=== PATIENT | male | born 1955 | race Caucasian/White ===

== ENCOUNTER → 2022-08-02 15:34 | Outpatient (BNVA) | payer OTHER, SELFPAY | PROVIDERS: PCP Internal Medicine; Visit Provider Psychiatry & Neurology Psychiatry | DX: Z13.89 Encounter for screening for other disorder (principal) ==

== ENCOUNTER 2023-07-03 11:10 | Outpatient (AMB) | payer MEDICARE, SELFPAY ==
--- NOTE | 2023-07-03 11:17 | MHC.OFFVISPS ---
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 did ok in winter goes outside frequently his brother in past would have winter blues used light box in past Past Psychiatric History: hx recurrent dysthymia Mental Status Exam Mental Status Exam Narrative: Mental Status Exam Narrative: Appearance: casually dressed smiling Behavior:appropriate psychomotor:wnl Speech: clear Thought proccess goal dir logical Thought content:future oriented content Mood:euthymic Affect:full SI:denies HI:denies VH/AH:none Delusions:none Insight/judgment:good Memory/cog: wnl Assessment and Plan Assessment & Plan (1) Dysthymic disorder: Status: Acute Code(s): F34.1 - Dysthymic disorder Plan in past was difficult 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 Self Management counseling: Maintenance-social rhythm and Sleep hygiene Diagnosis and Prognosis Counseling: Adequacy of current interventions Details: I spent [35] minutes reviewing the record, seeing the patient and documenting in the medical record. Counseling provided to the patient/caregiver as outlined below. Addressed patient/caregiver concerns regarding current medication regime including effective adherence. Addressed patient/caregiver concerns regarding diagnosis and prognosis including accuracy of diagnosis, prognosis over time, impact of diagnosis. Addressed patient/caregiver concerns regarding impact of recent stressors. 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
== END 2023-07-03 11:44 | disposition home or self-care (01) ==
LOC: HO.HOP 11:10
PROVIDERS: PCP Internal Medicine; Visit Provider Psychiatry & Neurology Psychiatry
DX: F34.1 Dysthymic disorder (principal)
CPT/HCPCS: 90833; 99213

== ENCOUNTER → 2023-07-03 11:10 | Outpatient (BNVA) | payer MEDICARE, SELFPAY | PROVIDERS: PCP Internal Medicine; Visit Provider Psychiatry & Neurology Psychiatry | DX: F34.1 Dysthymic disorder (principal) | CPT/HCPCS: 99212 ==